=== PATIENT | female | born 1960 | race Caucasian/White ===

== ENCOUNTER 2017-05-22 15:07 | Emergency (ER) | payer OTHER, SELFPAY ==
[~2017-05-22] VITALS: Ht 157.5 cm; Wt 56.7 kg
[~2017-05-22 15:07] MED LIST: ALDACTONE25 MG PO; IMITREX 25 MG T25 M1 PO; NAPROSYN500 MG PO; PERCOCET 5-3251 EACH PO; PHENERGAN 25 MG25 M1 PO; ZOFRAN ODT4 MG SUBLING
[2017-05-22 15:45] LABS: ABSOLUTE BASOPHILS 0.1 thou/uL (0.0-0.2); ABSOLUTE EOSINOPHILS 0.2 thou/uL (0.0-0.7); ABSOLUTE LYMPHOCYTES 2.7 thou/uL (0.8-5.3); ABSOLUTE MONOCYTES 0.4 thou/uL (0.0-1.2); BASOPHILS 0.7 %; EOSINOPHILS 2.1 %; HEMATOCRIT 42.1 % (37.0-47.0); HEMOGLOBIN 14.4 gm/dL (12.0-15.0); MCH 30.8 pg (26.0-34.0); MCHC 34.2 g/dL (28.0-37.0); MONOCYTES 5.4 %; MPV 7.8 fl. (7.2-11.1); NUCLEATED RBCS 0 /100WBC; PLATELET COUNT* 303 thou/uL (150-400); POLYS 54.8 %; RBC 4.68 mil/uL (4.20-5.00); WBC 7.4 thou/uL (4.0-11.0)
[2017-05-22 16:04] LABS: CALCIUM 8.9 mg/dL (8.5-10.1); CREATININE 0.9 mg/dL (0.6-1.3); POTASSIUM 3.6 mmol/L (3.5-5.1)
[2017-05-22 16:09] LABS: ALBUMIN 3.9 g/dL (3.4-5.0); TOTAL BILIRUBIN 0.2 mg/dL (<0.1-1.0); TOTAL PROTEIN 7.3 g/dL (6.4-8.2)
[2017-05-22 16:31] LABS: TROPONIN-I LEVEL <0.06 ng/mL (<0.06)
[2017-05-22] MEDS ORDERED: TRAMADOL 50 MG50 MG PO (16:46)
[2017-05-22 17:17] VITALS: BP 118/45
--- NOTE | 2017-05-23 13:10 | EKG ---
[place] [address] ELECTROCARDIOGRAM REPORT Name: THOMAS HENDRICKS Room: [facility]#: [id number] Admission: 05/22/17 Attend Phys: Discharge: 05/22/17 Date of : 64 Report #: [id number] THIS REPORT FOR: //name// [facility] ED Test Date: 2017-05-22 Test Time: 15:53:38 Pat Name: THOMAS HENDRICKS Department: Room: Gender: F General Hardware Salesperson: KATE : 1960 Requested By: Erica Caruso Order Number: [id number] MD: Junaid Warren Measurements Intervals [place] Rate: 71 P: 46 ME: 154 QRS: 1 QRSD: 98 T: 38 QT: 417 QTc: 454 Interpretive Statements Sinus rhythm Probable left atrial enlargement Compared to ECG 06/05/2014 12:01:56 No significant changes Electronically Signed On 05-23-2017 13:10:34 EMPLOYEE RELATIONS ADVISOR by Junaid Warren [email or web address] <ELECTRONICALLY SIGNED> By: Junaid Warren MD, [facility] 05/23/17 1310 1553 1553 Junaid Warren MD, FACC /EPI
== END 2017-05-22 17:18 | disposition home or self-care (01) ==
LOC: M.ERS 15:07
PROVIDERS: Nurse Practitioner Family
DX: R51 Headache (principal)

== ENCOUNTER 2018-04-17 05:09 | Emergency (ER) | payer OTHER ==
[~2018-04-17] VITALS: Ht 157.5 cm; Wt 52.2 kg
[~2018-04-17 05:09] MED LIST changes: +TRAMADOL 50 MG50 MG PO
[2018-04-17] MEDS ORDERED: TOPAMAX 25 MG T25 M1 PO (05:20)
[2018-04-17 05:54] LABS: ANION GAP 8 mmol/L (7-16); BUN 12 mg/dL (7-18); CALCIUM 8.6 mg/dL (8.5-10.1); CHLORIDE 105 mmol/L (98-107); CO2 28 mmol/L (21-32); CREATININE 0.9 mg/dL (0.6-1.3); GLUCOSE 92 mg/dL (70-99); POTASSIUM 3.4 mmol/L (3.5-5.1); SODIUM 141 mmol/L (136-145)
[2018-04-17 05:56] LABS: APTT 28.9 Seconds (25.0-31.3); PROTIME 9.8 Seconds (9.20-11.50)
[2018-04-17 06:01] LABS: ALBUMIN 2.8 g/dL (3.4-5.0); ALKALINE PHOSPHATASE 58 U/L (46-116); SGOT 19 U/L (15-37); SGPT 13 U/L (30-65); TOTAL BILIRUBIN 0.4 mg/dL (<0.1-1.0); TOTAL PROTEIN 6.3 g/dL (6.4-8.2); TROPONIN-I LEVEL <0.06 ng/mL (<0.06)
[2018-04-17 06:03] LABS: ABSOLUTE EOSINOPHILS 0.1 thou/uL (0.0-0.7); ABSOLUTE LYMPHOCYTES 1.9 thou/uL (0.8-5.3); ABSOLUTE MONOCYTES 0.5 thou/uL (0.0-1.2); ABSOLUTE NEUTROPHILS 4.7 thou/uL (1.6-8.1); BASOPHILS 0.5 %; HEMATOCRIT 38.1 % (37.0-47.0); HEMOGLOBIN 12.8 gm/dL (12.0-15.0); MCH 31.1 pg (26.0-34.0); MCHC 33.5 g/dL (28.0-37.0); MCV 92.9 fL (80.0-100.0); MONOCYTES 7.2 %; MPV 8.6 fl. (7.2-11.1); NUCLEATED RBCS 0 /100WBC; PLATELET COUNT* 250 thou/uL (150-400); POLYS 65.3 %; RDW-CV 12.5 % (10.5-14.5); WBC 7.2 thou/uL (4.0-11.0)
[2018-04-17 09:01] VITALS: BP 101/50
--- NOTE | 2018-04-17 14:20 | EKG ---
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
== END 2018-04-17 09:01 | disposition home or self-care (01) ==
LOC: M.ERS 05:09
PROVIDERS: Personal Emergency Response Attendant
DX: R07.9 Chest pain, unspecified (principal); G43.909 Migraine, unspecified, not intractable, without status migrainosus; Z85.89 Personal history of malignant neoplasm of other organs and systems; Z96.652 Presence of left artificial knee joint

== ENCOUNTER 2019-06-14 05:06 | Inpatient (IN) | payer OTHER ==
[~2019-06-14] VITALS: Ht 157.5 cm; Wt 56.2 kg
--- NOTE | ~2019-06-14 | CON ---
[address] [address] CONSULTATION Name: HENDRICKSTHOMAS Hannah Room: [address] [place]#: [id number] Admission: 06/14/19 Attend Phys: Cynthia Cage Discharge: Date of : 64 Report #: [id number] THIS REPORT FOR: //name// cc: DEMARCUS Magana family physician/PCP DEMARCUS Magana family physician/PCP ~ THIS REPORT FOR: //name// CC: DEMARCUS physician/PCP Cynthia Blackwood DATE OF SERVICE: 06/14/2019 UROLOGY CONSULTATION REASON FOR CONSULTATION: Right flank pain and ureteral calculus. CONSULTING PHYSICIAN: Cynthia Blackwood MD CHIEF COMPLAINT: Right flank pain. HISTORY OF PRESENT ILLNESS: This is a 58-year-old female with no prior stone history. She reports acute onset of right-sided lower quadrant/flank pain this morning, accompanied by nausea and vomiting. Denies fever or chills. Denies dysuria or hematuria. Denies frequency, urgency, or difficulty voiding. Denies fragment passage. Denies prior history of renal disease or stones. Pain became unremitting and she presented to the Emergency Department and was subsequently admitted. Urology was consulted regarding a right ureteral calculus. PAST MEDICAL HISTORY: As above. Also has a history of migraines for which she takes Topamax. Association of this with kidney stones was discussed with her and recommended she discuss options with her primary care physician. ALLERGIES: No known drug allergies. MEDICATIONS: Prior to admission include Topamax and spironolactone. 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 FAMILY HISTORY: She does not know of any family history of renal disease or kidney stones. SOCIAL HISTORY: She denies use of tobacco. Drinks alcohol. REVIEW OF SYSTEMS: As per the history of present illness. Denies any other recent illness. Denies chest pain, palpitation, shortness of [place] [address] CONSULTATION Name: RUTHIETHOMAS L Room: [address]#: [id number] Admission: 06/14/19 Attend Phys: Cynthia Cage Discharge: Date of : 64 Report #: [id number] Denies numbness or weakness in the extremities. States she has chronic swelling of the left lower extremity, which is unchanged recently. No other extremity swelling. No joint pain. No visual changes. PHYSICAL EXAMINATION: VITAL SIGNS: Temperature 97.5, pulse 80, respirations 16, blood pressure 102/55. GENERAL: This is a 58-year-old female, in no acute distress. She is awake, alert and oriented. Answers questions appropriately. HEENT: Normocephalic, atraumatic. NECK: Supple. No JVD. Oropharynx is clear. Extraocular movements are intact. RESPIRATORY: Effort and excursion are normal. Chest wall is nontender. CARDIAC: Rhythm is regular. Radial pulses are palpable. EXTREMITIES: Warm. Moves all extremities well. No peripheral edema. ABDOMEN: Soft and nondistended. She has right lower quadrant and flank/CVA tenderness. No guarding or rebound. Spine and left costovertebral angle are nontender. The remainder of her abdomen is nontender. PELVIC: Deferred. Bladder is nonpalpable. LABORATORY DATA: Laboratory studies include hemoglobin 13.4, white count 8.0, platelet count 205,000. Sodium 144, potassium 3.4, chloride 112, CO2 of 21, BUN 16, creatinine 0.9, glucose 145, calcium 6.7. Urinalysis revealed 0-5 white cells, 0-2 red cells and greater than 30 bacteria. Culture on that is pending. Blood cultures are pending. Noncontrast CT scan of the abdomen and pelvis report and images were reviewed. This reveals from a urologic standpoint a 4 mm right distal ureteral calculus with mild hydronephrosis. IMPRESSION AND PLAN: Findings and options for management were discussed with the patient. We discussed medical expulsive therapy, outpatient ESWL, inpatient versus outpatient cystoscopy/retrograde pyelography, ureteroscopy, laser stone manipulation, stent placement. Risks and benefits of these approaches were discussed. She would like to try medical expulsive therapy. We will await urine cultures. We discussed possibility of contaminant versus true UTI. She has been started on Rocephin empirically. We will start Flomax and check a KUB. Strain her urine for stones. Start IV fluids. We will defer management of the electrolyte abnormalities to the primary service. We will make her n.p.o. after midnight in case intervention is needed tomorrow. In the interim, diet is certainly okay from a urologic standpoint. We will follow along. By: [id number] Denis MD /chi
[~2019-06-14 05:06] MED LIST changes: -ALDACTONE25 MG PO; +SPIRONOLACTONE25 M1 PO; +TOPAMAX 25 MG T25 M1 PO
[2019-06-14 05:22] VITALS: BP 132/67
[2019-06-14 05:49] LABS: ABSOLUTE BASOPHILS 0.1 thou/uL (0.0-0.2); ABSOLUTE EOSINOPHILS 0.2 thou/uL (0.0-0.7); ABSOLUTE LYMPHOCYTES 2.1 thou/uL (0.8-5.3); ABSOLUTE MONOCYTES 0.5 thou/uL (0.0-1.2); ABSOLUTE NEUTROPHILS 5.1 thou/uL (1.6-8.1); BASOPHILS 0.7 %; EOSINOPHILS 2.5 %; HEMATOCRIT 39.3 % (37.0-47.0); HEMOGLOBIN 13.4 gm/dL (12.0-15.0); LYMPHOCYTES 26.8 %; MCH 30.8 pg (26.0-34.0); MCHC 34.1 g/dL (28.0-37.0); MCV 90.3 fL (80.0-100.0); MONOCYTES 6.2 %; MPV 7.6 fl. (7.2-11.1); NUCLEATED RBCS 0 /100WBC; PLATELET COUNT* 205 thou/uL (150-400); POLYS 63.8 %; RBC 4.35 mil/uL (4.20-5.00); RDW-CV 12.9 % (10.5-14.5)
[2019-06-14 06:08] LABS: CALCIUM 6.7 mg/dL (8.5-10.1); CREATININE 0.9 mg/dL (0.6-1.3); POTASSIUM 3.4 mmol/L (3.5-5.1)
--- NOTE | 2019-06-14 06:10 | NUR ---
PT RETURNED FROM CT
[2019-06-14 07:17] LABS: URINE BILIRUBIN NEGATIVE (Negative); URINE BLOOD 1+ (Negative); URINE CLARITY CLEAR; URINE COLOR YELLOW; URINE GLUCOSE-RANDOM NEGATIVE (Negative); URINE KETONES NEGATIVE (Negative); URINE LEUKOCYTES-REFLEX TRACE (Negative); URINE PROTEIN NEGATIVE (Negative); URINE SPECIFIC GRAVITY 1.025 (1.005-1.030); URINE UROBILINOGEN 0.2 E.U./dl (0.2-1.0)
[2019-06-14 07:21] LABS: URINE NITRITE-REFLEX POSITIVE (Negative)
[2019-06-14 07:28] LABS: AMP/METHAMP Negative (Negative); BARBITURATES Negative (Negative); BENZODIAZEPINES Negative (Negative); COCAINE Negative (Negative); METHADONE Negative (Negative); OPIATES Negative (Negative); PCP Negative (Negative); THC Negative (Negative)
[2019-06-14 07:37] LABS: BACTERIA-REFLEX >30 Many /HPF (None Seen); CASTS None Seen /LPF (None Seen); SQUAMOUS 0-3 Few /LPF (0-3); URINE RBC 0-2 Rare /HPF (0-2); URINE WBC-REFLEX 0-5 Rare /HPF (0-5)
[2019-06-14 07:38] LABS: CRYSTALS None Seen /LPF (None Seen)
[2019-06-14 08:22] VITALS: BP 102/55
[2019-06-14] MEDS ORDERED: INDERAL LA120 M1 PO (12:13)
--- NOTE | 2019-06-14 14:55 | NUR ---
Pt lives in a duplex with her dtr support. No dc needs anticipated at this time. SW to remain available to assist with safe dc planning if needs arise.
[2019-06-14 16:00] VITALS: BP 82/39
--- NOTE | 2019-06-14 19:44 | NUR ---
PATIENT AWAKE IN BED. PATIENT AMBULATED TO BATHROOM THROUGHOUT SHIFT. ALL SAFETY MEASURES MAINTAINED. PATIENT DENIES PAIN AND FURTHER NEEDS AT THIS TIME. DR. SALAZAR NOTIFIED OF PATIENT'S BLOOD PRESSURE. NEW ORDER RECEIVED AND VERIFIED WITH READ BACK.
[2019-06-14 19:46] VITALS: BP 93/44
[2019-06-15 04:35] LABS: HEMATOCRIT 36.2 % (37.0-47.0); HEMOGLOBIN 12.2 gm/dL (12.0-15.0); MCH 30.7 pg (26.0-34.0); MCHC 33.6 g/dL (28.0-37.0); MCV 91.5 fL (80.0-100.0); MPV 7.8 fl. (7.2-11.1); RBC 3.96 mil/uL (4.20-5.00); RDW-CV 13.1 % (10.5-14.5); WBC 5.7 thou/uL (4.0-11.0)
--- NOTE | 2019-06-15 05:02 | NUR ---
ASSUMED PT CARE AT 1930. PT ALERT AND ORIENTED X4. BP LOW, DR. MILES CONSULTED, BOLUS OF 250 CC'S NS GIVEN. IVF'S INFUSING AT 100 CC'S HR TO RIGHT AC. NO C/O PAIN. NO N/V. PT SLEPT WELL OVERNIGHT. PT HAS UTI AND KIDNEY STONE ON RIGHT. USES CALL LIGHT APPROPRIATELY. HOURLY ROUNDING IN PROGRESS, WILL CONTINUE TO MONITOR.
[2019-06-15 05:04] LABS: CALCIUM 6.7 mg/dL (8.5-10.1); CREATININE 0.8 mg/dL (0.6-1.3); POTASSIUM 3.4 mmol/L (3.5-5.1)
[2019-06-15 08:30] VITALS: BP 100/52
--- NOTE | 2019-06-15 10:00 | NUR ---
INFORMED PT.SHE WAS OUT OF NETWORK FOR HER INSURANCE AND HAS NO OON BENEFITS. GAVE HER LIST OF HOSPITALS SHE CAN GO TO FOR HER INSURANCE. SHE SAID [facility] OFFICE JUST CALLED AND THEY CANNOT GET HER ON SURGERY SCHEDULE FOR TODAY. TOLD HER AND HER RN WERE INFORMED.
[2019-06-15] MEDS ORDERED: ZOFRAN ODT4 MG DISSOLVE (11:53)
[2019-06-15] MEDS ORDERED: PERCOCET 5-3251 EACH PO (11:53)
[2019-06-15] MEDS ORDERED: FLOMAX0.4 MG PO (11:54)
[2019-06-15] MEDS ORDERED: CIPRO500 M1 PO (11:59)
[2019-06-15 15:39] VITALS: BP 100/52
--- NOTE | 2019-06-15 17:37 | NUR ---
PATIENT VERBALIZED UNDERSTANDING OF DISCHARGE INSTRUCTION. INSTUCTED TO STRAIN ALL URINE AND STRAINER SENT WITH PATIENT. PATIENT STATED SHE THOUGH SHE MIGHT HAVE ALLERGY TO CIPRO AND OXYCODONE BUT NOT SURE. SHE SAID SHE WILL CHECK WITH HER PHARMACY BUT DID NOT WANT TO WAIT TO DO IT HERE. SHE SAID SHE WOULD NOT TAKE CIPRO OR OXYCODONE UNTIL SHE CHECKS. SHE SAID UROLOGY OFFICE JUST CALLED HER AND SHE HAS APPT FOR 06/16. SHE WILL LET DR KNOW TOMORROW IF ALLERGY TO CIPRO OR OXYCODONE. PATIENT STATED HER BACK WAS ITCHING AND 3-4 SLIGHTLY RAISED AREAS NOTED. NO OTHER SYMPTOMS NOTED. PATIENT INSTRUCTED TO TAKE BENADRYL AND IF NO RELIEVE OR GETS WORSE/DIFFICULTY BREATHING CALL 911 OR GO TO ER. IF PAIN GETS TO BAD BEFORE APPT ON 06/16 SHE WILL GO TO ER. DENIES PAIN OR NAUSEA AT TIME OF DISCHARGE.
--- NOTE | 2019-06-15 18:26 | NUR ---
PATIENT CALLED STATED RASH GETTING WORSE AND NOW HAD BUMPS ON HER BUTTOCK AND AND OTHER PLACES. NO C/O DIFFICULTY WITH BREATHING. FEELING A LITTLE NAUSEATED/WOOZY. PATIENT INSTRUCTED TO GO TO ER OR CALL 911. PATIENT STATED SHE DIDN'T HAVE A RIDE SO WAS INSTRUCTED AGAIN TO CALL 911. SHE DID SAY SHE HAD TAKEN SOME LIQUID BENADRYL 10 MIN. AGO WHICH SHE WAS TOLD HAD NOT HAD TIME TO WORK YET. SHE WAS TOLD I RECOMEND HER TO CALL 911.
== END 2019-06-15 17:45 | disposition home or self-care (01) | DRG 690 ==
LOC: M.ERS 05:06 → M.3W 07:36 → M.TBA-ER 07:36 → M.3W 08:31
PROVIDERS: Emergency Medicine; ADMIT Family Medicine
DX: N13.6 Pyonephrosis (principal); I10 Essential (primary) hypertension; G43.909 Migraine, unspecified, not intractable, without status migrainosus; E87.6 Hypokalemia; Z85.89 Personal history of malignant neoplasm of other organs and systems

== ENCOUNTER → 2021-05-19 | Outpatient (CLI) | payer OTHER ==
[~2021-05-19] MED LIST changes: +CIPRO500 M1 PO; +FLOMAX0.4 MG PO; +INDERAL LA120 M1 PO; +ZOFRAN ODT4 MG DISSOLVE
== END ==
LOC: M.RAD 13:48
PROVIDERS: ATTEND Family Medicine
DX: M19.042 Primary osteoarthritis, left hand (principal)